=== PATIENT | female | born 2000 | race Caucasian/White ===

== ENCOUNTER 2020-05-22 13:06 | Emergency (ER) | payer BC ==
[~2020-05-22] VITALS: Ht 170.2 cm; Wt 70.8 kg
[2020-05-22 14:25] LABS: ABSOLUTE NEUTROPHILS 4.7 thou/uL (1.4-8.2); BASOPHILS 0.4 % (0.0-2.0); EOSINOPHILS 0.5 % (0.0-3.0); HEMATOCRIT 36.1 % (42.0-52.0); HEMOGLOBIN 12.4 gm/dL (14.0-18.0); LYMPHOCYTES 23.8 % (24.0-44.0); MCH 31.9 pg (26.0-34.0); MCHC 34.3 g/dL (28.0-37.0); MONOCYTES 7.3 % (1.0-8.0); PLATELET COUNT 195 thou/uL (150-400); RBC 3.88 mil/uL (4.50-6.00); RDW 13.5 % (10.5-14.5); WBC 6.9 thou/uL (4.0-11.0)
[2020-05-22 14:40] LABS: ANION GAP 9 mmol/L (7-16); BUN 11 mg/dL (7-18); CALCIUM 8.8 mg/dL (8.5-10.1); CHLORIDE 105 mmol/L (98-107); CO2 25 mmol/L (21-32); CREATININE 0.6 mg/dL (0.7-1.3); GLUCOSE 94 mg/dL (74-106); POTASSIUM 3.9 mmol/L (3.5-5.1); SODIUM 139 mmol/L (136-145)
[2020-05-22 14:50] LABS: ALBUMIN 4.1 g/dL (3.4-5.0); SGOT 15 U/L (15-37); SGPT 16 U/L (30-65); TOTAL BILIRUBIN 0.4 mg/dL (0.2-1.0); TOTAL PROTEIN 7.7 g/dL (6.4-8.2); TROPONIN-I <0.06 ng/mL (<0.06)
[2020-05-22] MEDS ORDERED: CYCLOBENZAPRINE5 MG PO (15:04)
[2020-05-22] MEDS ORDERED: MOBIC7.5 MG PO (15:04)
[2020-05-22 15:25] VITALS: BP 135/74
--- NOTE | 2020-05-23 07:40 | EKG ---
[facility] [place] [address] ELECTROCARDIOGRAM REPORT Name: CASSANDRALALOMATILDE Room #: DEP [facility]#: [id number] Admission: 05/22/20 Attend Phys: Discharge: 05/22/20 Date of : [birth year] Report #: [id number] THIS REPORT FOR: cc: FAM - Family physician unknown FAM - Family physician unknown Avtar Yañez MD [facility] ~ THIS REPORT FOR: //name// [facility] ED Test Date: 2020-05-22 Test Time: 13:24:32 Pat Name: MATILDE MALONE Department: Room: Gender: F Electronic Lab Technician: [facility] : 2000 Requested By: Coleman Lopez Order Number: [id number] MD: Avtar Yañez Measurements Intervals [place] Rate: 86 P: 11 MT: 116 QRS: 69 QRSD: 86 T: -21 QT: 336 QTc: 402 Interpretive Statements Sinus rhythm Borderline short MT interval Borderline T abnormalities, inferior leads No previous ECG available for comparison Electronically Signed On 05-23-2020 7:40:27 CDT by Avtar Yañez [email or web address] <ELECTRONICALLY SIGNED> By: Avtar Yañez MD, FACC 05/23/20 0740 1324 1324 Avtar Yañez MD, [facility] /EPI
== END 2020-05-22 15:30 | disposition home or self-care (01) ==
LOC: ER 13:06
PROVIDERS: Physician Assistant
DX: R07.89 Other chest pain (principal); R05 Cough; J02.9 Acute pharyngitis, unspecified; F17.210 Nicotine dependence, cigarettes, uncomplicated

== ENCOUNTER → 2021-03-18 | Emergency (ER) | payer BC ==
[~2021-03-18] VITALS: Ht 170.2 cm; Wt 61.2 kg
[~2021-03-18] MED LIST: CYCLOBENZAPRINE5 MG PO; MOBIC7.5 MG PO
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
[2021-03-18 10:33] VITALS: BP 103/59
== END ==
LOC: ER 04:40
DX: F10.129 Alcohol abuse with intoxication, unspecified (principal)